=== PATIENT | female | born 1975 | race Caucasian/White ===

== ENCOUNTER 2019-09-24 06:21 | Day surgery (SDC) | payer SELFPAY ==
[2019-09-18 16:35] VITALS: BMI 21.0
[2019-09-24] MEDS ORDERED: LIDOCAINE 1%/EPI 1:100000 (20 ML MULTI DOSE VIAL) ONE (07:18)
[2019-09-24] MEDS ORDERED: TETRACAINE 0.5% OPHTH SOLN 2 ML BOTTLE ONE (07:18)
[2019-09-24] MEDS ORDERED: POVIDONE-IODINE 5% OPHTHALMIC PREP 30 ML SOLUTION ONE (07:18)
[2019-09-24] MEDS ORDERED: ERYTHROMYCIN 0.5% OPHTHALMIC OINTMENT 3.5 GM TUBE ONE (07:18)
[2019-09-24] MEDS ORDERED: PROPOFOL 20 ML ONE ×11 (07:41→10:59)
[2019-09-24] MEDS ORDERED: MIDAZOLAM HCL 2 MG/2 ML SINGLE DOSE VIAL ONE (07:41)
[2019-09-24] MEDS ORDERED: ONDANSETRON 4 MG/2 ML VIAL ONE (07:43)
[2019-09-24] MEDS ORDERED: ePHEDrine SULFATE 50 MG/1 ML AMPULE ONE (08:13)
[2019-09-24] MEDS ORDERED: THROMBIN (RECOMBINANT) 5,000 UNIT VIAL TP ONE (09:41)
[2019-09-24] MEDS ORDERED: GUM MASTIC/STORAX/MSAL/ALCOHOL 1 DRP DROPSBTL MC ONE (11:30)
[2019-09-24] MEDS ORDERED: PROMETHAZINE HCL 25 MG/1 ML VIAL IVPUSH PRN (12:28)
[2019-09-24] MEDS ORDERED: oxyCODONE HCL 5 MG TABLET PO PRN ×2 (12:28)
[2019-09-24] MEDS ORDERED: ONDANSETRON 4 MG/2 ML VIAL IVPUSH PRN (12:28)
[2019-09-24 13:17] VITALS: TEMP 98.2
[2019-09-24] MEDS ORDERED: ACETAMINOPHEN 325 MG TABLET (FP) ONE (13:46)
[2019-09-24] MEDS ORDERED: ACETAMINOPHEN 500 MG TABLET (FP) PO ONE (14:45)
[2019-09-24 15:02] VITALS: BP 116/70; PULSE 94
--- NOTE | 2019-09-24 15:23 | OP ---
DATE OF OPERATION: 09/24/2019 PREOPERATIVE DIAGNOSIS: Significant fat prolapse bilateral lower lids, moderate lower lid laxity, dermatochalasis, nasal fat prolapse bilateral upper lids. POSTOPERATIVE DIAGNOSIS: Significant fat prolapse bilateral lower lids, moderate lower lid laxity, dermatochalasis, nasal fat prolapse bilateral upper lids. PROCEDURE: Blepharoplasty bilateral upper lids and blepharoplasty bilateral lower lids. SURGEON: Kayy Miller MD ANESTHESIA: LMA. COMPLICATIONS: None. ESTIMATED BLOOD LOSS: 3 mL. OPERATIVE REPORT: Patient brought to the operating room. Placed on the operating room table. Vital signs were monitored by Anesthesia. Tetracaine was placed in both eyes. Lid creases were marked symmetrically in both upper lids using the patient's kalispel lid crease approximately 8+ mm above the central lid margin, and these were tailored nasally and temporally extending from the punctum to the lateral canthus arching up laterally and nasally. The superior border of the intended excision was marked and measured by pinching the skin with smooth forceps. The patient had been marked preoperatively in the holding area for the lower lid fat prominence and for the extent of temporal hooding. At this point, the patient was given intravenous sedation, and 2% Xylocaine, 1:100,000 epinephrine was injected subcutaneously in both upper lids for hyrodissection and hemostasis. Patient was prepped and draped in the usual sterile fashion exposing both eyes. After massage of the eyelids, the following procedure was performed bilaterally. The lid crease was incised with a 15 blade angling upward nasally and temporally at an obtuse angle. Superior edge of the ellipse was incised as well and then the skin ellipse was excised completely with Henry needle leaving orbicularis intact. Hemostasis was achieved with a Henry needle. At this point, the nasal orbicularis was incised exposing the nasal fat pocket, and the orbicularis and septum were opened across the eyelid protecting the levator until the fat pockets could be identified across the eyelid in the nasal and central fat pockets in addition to which a superolateral orbital rim was also identified in the arcus marginalis. The nasal fat pocket in the upper lid was then released from surrounding fatty tissue with blunt and Henry dissection. Meticulous hemostasis was maintained until the nasal fat pedicle could be mobilized to the central eyelid. This fat pedicle was then secured to the underside of the orbicularis using a 6-0 Vicryl suture and transposing the nasal fat into the central eyelid. Small amount of sculping or excision of the preaponeurotic fat was then performed to create a smooth contour in both eyelids , hemostasis was obtained, antibiotic irrigation was used throughout the case. Lateral 6-0 Vicryl sutures were used to close the temporal orbicularis and to plicate it to the superolateral orbital rim at the arcus marginalis with a "brassiere-suture" Two of these sutures were placed in each eyelid accentuating the lateral crease and elevating the brow fat pad to maintain the temporal brow fullness. The wounds were then closed in the following manner: The central portion of the ellipse was closed with a 6-0 nylon. The temporal portion was closed with a 6-0 nylon, and the nasal portion was closed with a 6-0 nylon, which was tied and run continuously from nasal to central along the superior lid incision. This completed the upper lid blepharoplasty with nasal to central fat transposition, fat sculpting, and temporal brassiere suture placement. Attention was now turned to the lower lids. During the closure of the upper lids, transconjunctival injection of 3 mL of 2% Xylocaine, 1:100,000 was given for 1 mL in each of three pockets: nasally, centrally, and temporally. The same procedure then performed on both lower eyelids. The lid was distracted downward with a Desmarres retractor with gentle upward ballottement of the globe with an eyelid plate. Conjunctiva was opened from medial to lateral exposing fibrofatty tissue. This fibrofatty tissue was incised until the temporal fat pocket could be identified and then the nasal and central fat pockets were identified paying meticulous attention to avoid the inferior oblique Fascial attachments and fibrous attachments to the medial and central fat pockets in the lower lids were carefully dissected with the Henry needle until these 2 fat pockets moved freely underneath the orbicularis without tethering it. Hemostasis was obtained when necessary. The inferior nasal arcus marginalis was identified. It was incised with a Henry needle anterior to the rim The orbicularis and periosteum were elevated using a Thayer periosteal elevator. The tear troughs had been marked preoperatively. The elevation of this tissue continued in a curvilinear fashion extending beyond the tear trough. The nasal and central fat pockets now were secured with a running 5-0 Prolene suture, and each arm of the Prolene suture was passed underneath the orbicularis and periosteum exiting beyond the tear trough nasally and then tied through Telfa externally Sculpting of the fat nasally, centrally, and temporally, (superficial and deep temporal fat pockets) until an acceptable contour without significant fat prominence with gentle pressure on the globe was attained Hemostasis was obtained throughout. The conjunctiva was then closed with 2 interrupted 6-0 plain sutures, one centrally and one laterally, to create good conjunctival and retractor apposition. Attention was turned to the skin. There was minimal dermatochalasis, so an injection of subcutaneous 2% Xylocaine, 1:100,000 epinephrine for a total of 2-3 mL was performed bilaterally for hemostasis. Skin pinch was then performed with smooth forceps, and the pinched skin was then removed with Ernst scissors. Lateral dissection was performed bluntly, through the orbicularis to the orbital rim, and the lateral portion of the tarsotendinous structure of the lower lids was now secured to the orbital rim with a 5-0 Vicryl suture (lateral canthopexy) avoiding excessive elevation of the eyelid while maintaining good apposition to the globe (there had been moderate laxity preoperatively). The skin was then closed with a running 6-0 nylon suture. A small amount of dissection was carried out in the right lower lid for a skin flap dissection prior to closure. Erythromycin ointment was placed in the eye and on the sutures of the lower lid, upper lid, and on the Telfa of the fat transposition suture. Mastisol and Steri-Strips were placed laterally from the lower lid to the superolateral canthus elevating the lids bilaterally, and the patient was awakened from anesthesia, (LMA), and taken to the recovery room in stable condition. KAYY MILLER M.D. [id number]
== END 2019-09-24 14:30 | disposition home or self-care (01) ==
LOC: FASU 06:21
PROVIDERS: ATTEND Ophthalmology
PROC: 08SN0ZZ Reposition Right Upper Eyelid, Open Approach (ICD-10-PCS; 2019-09-24)
PROC: 08SP0ZZ Reposition Left Upper Eyelid, Open Approach (ICD-10-PCS; 2019-09-24)
PROC: 08SQ0ZZ Reposition Right Lower Eyelid, Open Approach (ICD-10-PCS; 2019-09-24)
PROC: 08SR0ZZ Reposition Left Lower Eyelid, Open Approach (ICD-10-PCS; principal; 2019-09-24 08:16)
DX: H02.831 Dermatochalasis of right upper eyelid (principal); H02.832 Dermatochalasis of right lower eyelid; H02.834 Dermatochalasis of left upper eyelid; H02.835 Dermatochalasis of left lower eyelid; H02.89 Other specified disorders of eyelid
CPT/HCPCS: 81025; 94760